=== PATIENT | female | born 1990 | race Caucasian/White ===

== ENCOUNTER 2023-03-20 11:06 | Emergency (ER) | payer OTHER, SELFPAY ==
--- NOTE | 2023-03-20 11:09 | ED.SKABFB ---
HPI - Skin/Abscess/Foreign Bdy General Chief complaint: Skin/Abscess/Foreign Body Stated complaint: insect bite, red cahto and warm Time Seen by Provider: 03/20/23 11:36 Source: patient and RN notes reviewed Mode of arrival: ambulatory Limitations: no limitations History of Present Illness HPI narrative: 32-year-old female presents to the [facility] with left lower leg insect bite that occurred Sunday night,, 3 days ago. Tried picking the insect out but did not see it. Indurated area with erythema, increased warmth. No treatment prior to arrival. Onset (ago): day(s) (3) Treatments prior to arrival: none Related Data Home Medications Medication Instructions Recorded Confirmed bupropion HCl 300 mg 24 hr tablet, mg PO 03/20/23 extended release hydroxyzine HCl 10 mg tablet mg 03/20/23 lurasidone 60 mg tablet mg 03/20/23 medroxyprogesterone 150 mg/mL mg IM 03/20/23 intramuscular suspension omeprazole 40 mg capsule,delayed mg 03/20/23 release valacyclovir 500 mg tablet mg 03/20/23 Allergies Allergy/AdvReac Type Severity Reaction Status Date / Time iodine Allergy Rash Verified 03/20/23 11:20 Review of Systems Review of Systems: All systems reviewed & are unremarkable except as noted in HPI and below Constitutional: Constitutional: Reports no additional constitutional complaints Eyes: Eyes: Reports no additional eye complaints ENT: Reports system reviewed and no additional complaints, except as documented Cardiovascular: Cardiovascular: Reports no additional cardiovascular complaints, Denies chest pain and Denies dyspnea Respiratory: Respiratory: Reports no additional respiratory complaints, Denies chest congestion, Denies cough and Denies dyspnea Gastrointestinal: Gastrointestinal: Reports no additional gastrointestinal complaints, Denies abdominal pain, Denies nausea and Denies vomiting Musculoskeletal: Musculoskeletal: Reports no additional musculoskeletal complaints Integumentary/Breasts: Skin/Breast: Reports as per HPI, Reports erythema and Reports skin pain Neurologic: Reports system reviewed and no additional complaints, except as documented Psychiatric: Psychiatric: Reports no additional psychiatric complaints Allergic/Immunologic: Allergic/Immunologic: Reports no additional allergic/immunologic complaints [facility] Past Medical History Medical History (Updated 03/20/23 @ 11:52 by Melissa Ribeiro APRN) Acid reflux Anxiety and depression Comments At the time of my signature, I reviewed and agree with the nursing past medical, surgical, social, and family history. There is no relevant family history pertinent to the patient complaint. Exam Const: General: cooperative, healthy appearing, comfortable, no acute distress, well developed, alert and well nourished Nutritional Appearance: well nourished and obese Orientation/consciousness: patient oriented x3 Limitations: no limitations HENMT: Head: normal to inspection Ears: hearing grossly normal bilaterally and external ears normal Face/Nose/Sinus: Normal external nose present, Normal nares present, Normal nasal mucous membranes and turbinates present and normal facial exam Face and sinus: normal facial exam Mouth: Yes lip normal Eyes: General: appearance normal, both eyes and all related structures Alignment and Position: alignment normal Periorbital: periorbital findings normal Pupils: Equal, round and reactive pupils present EOM: EOMs intact bilaterally Neck: Neck: normal visual inspection, full ROM, no lymphadenopathy and no meningeal signs Chest: Chest palpation & inspection: normal inspection of the chest Resp: Effort & Inspection: normal respiratory effort and able to speak in complete sentences Auscultation: clear to auscultation bilaterally, no crackles, no rales, no rhonchi and no wheezes Cardio: Rate: regular rate Rhythm: regular rhythm Back/Spine/Pelvis: Cervical Spine: cervical ROM normal Thoracic/Lumbar Spine
[2023-03-20 11:21] VITALS: BP 133/96; PULSE 95; RESP 16; TEMP 37.4; O2SAT 99
== END 2023-03-20 11:52 | disposition home or self-care (01) ==
PROVIDERS: Emergency Provider Nurse Practitioner; PCP Family Medicine
DX: L03.116 Cellulitis of left lower limb (principal); K21.9 Gastro-esophageal reflux disease without esophagitis
CPT/HCPCS: 99203; G0463

== ENCOUNTER 2024-05-12 08:06 | Emergency (ER) | payer OTHER, SELFPAY ==
--- NOTE | 2024-05-12 08:10 | ED.URI ---
HPI - URI/Sore Throat General Stated Complaint: Nausea/Headache Related Data Home Medications Medication Instructions Recorded Confirmed bupropion HCl 300 mg 24 hr tablet, mg PO 03/20/23 extended release hydroxyzine HCl 10 mg tablet mg 03/20/23 lurasidone 60 mg tablet mg 03/20/23 medroxyprogesterone 150 mg/mL mg IM 03/20/23 intramuscular suspension omeprazole 40 mg capsule,delayed mg 03/20/23 release valacyclovir 500 mg tablet mg 03/20/23 Allergies Allergy/AdvReac Type Severity Reaction Status Date / Time iodine Allergy Rash Verified 03/20/23 11:20 [facility] Past Medical History Medical History (Updated 03/21/23 @ 00:01 by Background Trista) Acid reflux Anxiety and depression Discharge Plan Discharge Prescriptions: No Action valacyclovir 500 mg tablet omeprazole 40 mg capsule,delayed release(DR/EC) hydroxyzine HCl 10 mg tablet medroxyprogesterone 150 mg/mL suspension IM bupropion HCl 300 mg tablet extended release 24 hr PO lurasidone 60 mg tablet cephalexin 500 mg capsule 500 mg PO QID 7 Days Qty: 28 0RF Follow-up/Referrals: Zoë,Antoine Murillo MD [Primary Care Provider] -
[2024-05-12 08:21] VITALS: BP 146/100; PULSE 64; RESP 22; TEMP 36.2; O2SAT 100
--- NOTE | 2024-05-12 08:29 | ED.HA ---
HPI - Headache General Chief Complaint: Nausea/Vomiting/Diarrhea Stated Complaint: Nausea/Headache Time Seen by Provider: 05/12/24 08:29 Mode of arrival: ambulatory Limitations: no limitations History of Present Illness HPI Narrative: 34-year-old female presents with concern of for nausea and vomiting. Reports symptoms started around 10 30 last night when she woke up from sleeping with a headache. She reports she then vomited it. Reports the headache went away after vomiting. She reports since then however she has continued to vomit. She denies abdominal pain, diarrhea, constipation. She reports she feels sweats, chills, feels feverish. She reports body aches. She denies nasal congestion, rhinorrhea, sore throat, cough. She denies urine frequency, dysuria, back pain. She reports she recently had a tubal ligation, she has not had a menstrual period in several years due to the Depo-Provera shot. MD elicited complaint: other (Nausea and vomiting) Related Data Home Medications Medication Instructions Recorded Confirmed bupropion HCl 300 mg 24 hr tablet, 300 mg PO DAILY 03/20/23 05/12/24 extended release hydroxyzine HCl 10 mg tablet 10 mg PO DIRECTED 03/20/23 05/12/24 lurasidone 60 mg tablet 60 mg PO DAILY 03/20/23 05/12/24 omeprazole 40 mg capsule,delayed 40 mg PO DAILY 03/20/23 05/12/24 release bupropion HCl 150 mg 24 hr tablet, 150 mg PO DAILY 05/12/24 05/12/24 extended release valacyclovir 500 mg tablet 500 mg PO DIRECTED 05/12/24 05/12/24 Allergies Allergy/AdvReac Type Severity Reaction Status Date / Time iodine Allergy Rash Verified 03/20/23 11:20 Review of Systems Review of Systems: CONSTITUTIONAL: Reports malaise, chills, sweats, or fever. EYES: Denies visual changes, redness, or discharge. ENT: Denies rhinorrhea, congestion, sinus pain, otalgia or sore throat. CARDIOVASCULAR: Denies chest pain, palpitations, or edema. RESPIRATORY: Denies cough or dyspnea. GASTROINTESTINAL: Denies abdominal pain, diarrhea. Reports nausea and vomiting GENITOURINARY: Denies dysuria or hematuria. SKIN: Denies rash or itching. MUSCULOSKELETAL: Denies back pain, joint pain. Reports myalgia. NEUROLOGIC: Denies numbness, weakness. Reports 1 episode of headache. PSYCHIATRIC: Denies anxiety or depression. All systems reviewed & are unremarkable except as noted in HPI and below PMFSH Past Medical History Medical History (Updated 05/12/24 @ 08:38 by Melissa Miller NP) Acid reflux Anxiety and depression Comments At time of signature, agree with nursing past medical, surgical, social and family history. There is no relevant family history pertinent to the presenting complaint Exam Narrative: GENERAL: Nontoxic-appearing, well-nourished, and in no acute distress. HEAD: Normocephalic, atraumatic. EYES: PERRLA, sclera clear, and EOMI. No nystagmus. ENT: Nares clear. Mucous membranes moist. TM pearly rhodes with sharp light reflex bilaterally; no tragal tenderness. Oropharynx without erythema or lesions. Tonsils not enlarged and without exudate. NECK: Supple. No lymphadenopathy. CHEST: No respiratory distress. Clear to auscultation. No bony deformities, no asymmetry. Speaks in full sentences. HEART: Regular rate and rhythm. No murmur heard. Normal peripheral pulses. ABDOMEN: Soft, nontender, nondistended, normal active bowel sounds, no palpable masses. EXTREMITIES: Normal range of motion. No edema. Normal strength and sensation. SKIN: Warm, dry, no visible rash. NEURO: Alert and oriented x3. No focal deficits. Cranial nerves II through XII grossly intact PSYCH: Normal mood and affect Course Course Emergency Course: Patient is aware of diagnosis, understands and agrees to treatment plan. Anticipatory guidance given. Patient agrees to follow-up as directed and is aware of reasons to seek care at the emergency department. Portions of this record may have been created with voice recognition software Level of
[2024-05-12 09:02] LABS: EDINFLUASCREEN Negative; EDINFLUBSCREEN Negative
== END 2024-05-12 08:50 | disposition home or self-care (01) ==
PROVIDERS: Emergency Provider Nurse Practitioner; PCP Family Medicine
DX: R11.2 Nausea with vomiting, unspecified (principal); Z20.822 Contact with and (suspected) exposure to COVID-19; K21.9 Gastro-esophageal reflux disease without esophagitis; F41.9 Anxiety disorder, unspecified; F32.A Depression, unspecified
CPT/HCPCS: 87426; 87804; 99213; G0463

== ENCOUNTER 2024-07-09 17:45 | Emergency (ER) | payer OTHER, SELFPAY ==
--- NOTE | 2024-07-09 17:51 | ED.UPPEXIN ---
HPI - Extremity Injury (Upper) General Chief Complaint: Wound/Laceration Stated Complaint: finger injury right hand Time Seen by Provider: 07/09/24 18:25 Source: patient and RN notes reviewed Mode of arrival: ambulatory Limitations: no limitations History of Present Illness HPI narrative: 4-year-old female presents with concern for laceration to the tip of the 4th digit of right she. She reports she was cutting onions on a mandoline. She reports she put a bandage on it and wrapped it with a rubber band because it would not stop bleeding. Reports it that she stop bleeding overnight. complaint: injury to: right and finger Related Data Home Medications Medication Instructions Recorded Confirmed bupropion HCl 300 mg 24 hr tablet, 300 mg PO DAILY 03/20/23 07/09/24 extended release hydroxyzine HCl 10 mg tablet 10 mg PO DIRECTED 03/20/23 07/09/24 lurasidone 60 mg tablet 60 mg PO DAILY 03/20/23 07/09/24 omeprazole 40 mg capsule,delayed 40 mg PO DAILY 03/20/23 07/09/24 release bupropion HCl 150 mg 24 hr tablet, 150 mg PO DAILY 05/12/24 07/09/24 extended release valacyclovir 500 mg tablet 500 mg PO DIRECTED 05/12/24 07/09/24 fluvoxamine 25 mg tablet 25 mg PO DAILY 07/09/24 07/09/24 lamotrigine 25 mg tablet 25 mg PO DAILY 07/09/24 07/09/24 Allergies Allergy/AdvReac Type Severity Reaction Status Date / Time iodine Allergy Mild Rash Verified 07/09/24 17:56 Review of Systems Review of Systems: CONSTITUTIONAL: Denies malaise, chills, sweats, or fever. SKIN: Reports laceration to the 4th digit her right hand MUSCULOSKELETAL: Denies musculoskeletal pain NEUROLOGIC: Denies numbness, weakness All systems reviewed & are unremarkable except as noted in HPI and below PMFSH Past Medical History Medical History (Updated 07/09/24 @ 18:37 by Melissa Miller NP) Acid reflux Anxiety and depression Comments At time of signature, agree with nursing past medical, surgical, social and family history. There is no relevant family history pertinent to the presenting complaint Exam Narrative: GENERAL: Well-appearing, well-nourished, and in no acute distress. HEAD: Normocephalic, atraumatic. EYES: PERRLA, conjunctivae clear, and EOMI. ENT: Mucous membranes moist. NECK: Supple. No lymphadenopathy CHEST: Clear to auscultation. No respiratory distress. HEART: Regular rate and rhythm. SKIN: Warm, dry. 1 cm laceration, well-approximated with no bleeding noted to the distal 4th digit of the right hand MUSC: Normal ROM, sensation to 4th digit of right hand NEURO: Alert and oriented x3. PSYCH: Normal mood and affect Course Course Emergency Course: Patient is aware of diagnosis, understands and agrees to treatment plan. Anticipatory guidance given. Patient agrees to follow-up as directed and is aware of reasons to seek care at the emergency department. Portions of this record may have been created with voice recognition software Level of Care: Express Care Visit Vital Signs Vital signs: Reviewed. Procedures Laceration Laceration 1: Date: 07/09/24 Time: 18:41 Site: upper extremity Size (cm): 1 Description: linear Depth: simple, single layer ====== Skin Level ====== Skin layer closed with: dermabond ====== Subcutaneous Layer ====== ====== Muscle Layer ====== ====== Tendon Layer ====== MDM - Extremity Injury (Upper) MDM Narrative Medical decision making narrative: Wound explored for foreign body and copious irrigation provided with no evidence of FB. The wound was explored and no foreign bodies were found. There was no evidence of tendon or nerve lacerations. The wound was closed with Dermabond. Anticipatory guidance was provided. Tetanus prophylaxis was up-to-date Critical Care Time Critical Care Time Critical Care Time: No Discharge Plan Discharge Clinical Impression: Laceration Patient Disposition: Home, Self-Car
[2024-07-09 17:55] VITALS: BP 127/72; PULSE 80; RESP 16; TEMP 36.8; O2SAT 100
== END 2024-07-09 18:40 | disposition home or self-care (01) ==
PROVIDERS: Emergency Provider Nurse Practitioner; PCP Family Medicine
DX: S61.214A Laceration without foreign body of right ring finger without damage to nail, initial encounter (principal); W27.4XXA Contact with kitchen utensil, initial encounter; K21.9 Gastro-esophageal reflux disease without esophagitis; F41.9 Anxiety disorder, unspecified; F32.A Depression, unspecified
CPT/HCPCS: 12001; 99212; G0463